=== PATIENT | male | born 1965 | race Caucasian/White ===

== ENCOUNTER 2021-12-15 06:21 | Day surgery (SDC) | payer SELFPAY ==
[~2021-12-15] VITALS: Ht 175.3 cm; Wt 244.0 kg
[~2021-12-15 06:21] MED LIST: AMOCLA875 PO; HYDR1TAB94 PO; MIGRAINE RELIE1 EACH PO; MULTI VITAMIN1 EACH PO; VITAMIN D3400 UNIT PO; Zinc Gluconate100 MG PO
== END 2021-12-15 08:15 | disposition home or self-care (01) ==
LOC: ORSCSDS 06:21
PROVIDERS: Ophthalmology
PROC: 08RJ3JZ Replacement of Right Lens with Synthetic Substitute, Percutaneous Approach (ICD-10-PCS; principal; 2021-12-15 07:30)
DX: H25.11 Age-related nuclear cataract, right eye (principal); E66.9 Obesity, unspecified; Z68.36 Body mass index [BMI] 36.0-36.9, adult
CPT/HCPCS: A9270; J2001; J2250; J3010; J3301; J7040; V2632